=== PATIENT | male | born 1955 ===

== ENCOUNTER 2022-08-24 09:57 | Observation (INO) ==
--- NOTE | 2022-07-29 09:11 | PAT Medication Instructions ---
Medication Instructions Date of Service July 29, 2022 Home Medications cyanocobalamin (vitamin B-12) 1,000 mcg tablet 1,000 mcg PO QAM lisinopril 20 mg-hydrochlorothiazide 12.5 mg tablet 1 tab PO HS rabeprazole 20 mg tablet,delayed release (AcipHex) 20 mg PO QAM DO NOT take the morning of surgery cyanocobalamin (vitamin B-12) 1,000 mcg tablet 1,000 mcg PO QAM Take morning of surgery With a small sip of water, OTHERWISE NOTHING TO EAT OR DRINK AFTER MIDNIGHT: rabeprazole 20 mg tablet,delayed release (AcipHex) 20 mg PO QAM Take evening before surgery lisinopril 20 mg-hydrochlorothiazide 12.5 mg tablet 1 tab PO HS Other Notes If you have any questions please call us at [phone] or [phone] or [phone] or [phone]
--- NOTE | 2022-08-03 11:48 | Anesthesiology Consultation ---
Date of Service August 03, 2022 Assessment & Plan (1) Encounter for pre-operative examination: Chart Review Chart Review: Acceptable Risk for Surgery and Patient seen in Pre Admission Testing Pt currently scheduled as 23 hours observation. If surgeon decides to change patient to [facility] Day [facility], patient would be acceptable risk for TKA, pending patient is motivated, has good support and surgeon's office completes [facility] preop requirements. Per PAT appt on 08/03/22, patient denies any recent travel. Pt is vaccinated for Covid. Will leave to surgeon's discretion if preop Covid testing needed. Educated on importance of using Covid precautions one week prior to surgery Teaching & Discussion Pre-Anesthesia Teaching/Discussion Notes: Instructed NPO after midnight before surgery,except medications with 15 cc of water. Medication instructions provided according to the PAT guidelines. History Surgery Operation Date: 08/24/22 08:50 Proposed Procedures p Right Total Knee Arthroplasty - Sam Theodore MD Height/Weight Height: 6 ft Weight: 92.1 kg Allergies Allergy/AdvReac Type Severity Reaction Status Date / Time metoclopramide [From Reglan] AdvReac Intermediate hives or Verified 07/28/22 15:04 rash-"can't remember" Medications Home Medications Medication Instructions Recorded Confirmed Last Taken cyanocobalamin (vitamin B-12) 1,000 mcg PO QAM 03/30/22 07/28/22 Unknown 1,000 mcg tablet rabeprazole 20 mg tablet,delayed 20 mg PO QAM 03/30/22 07/28/22 Unknown release (AcipHex) lisinopril 20 1 tab QPM 08/03/22 08/03/22 Unknown mg-hydrochlorothiazide 25 mg tablet Past Medical History Medical History Arthritis GERD (gastroesophageal reflux disease) Well controlled and stable with med History of Ribeiro's esophagus Follows routinely with EGDs History of COVID-19 03/2019, no testing, saw PCP for "being sick", loss of taste and smell for 16 months>resolved. Hypertension Exercise / Class Metabolic Activity II 4-5 Yardwork/Stairs/Walk up hill (one flight of stairs - no chest pain or SOB) Past Surgical History Surgical History History of esophagogastroduodenoscopy (EGD) Hx of appendectomy Hx of colonoscopy w/polypectomy Hx of tonsillectomy Hx of vasectomy Past Anesthesia History No Hx of Anesthesia Complications and No Family Hx of Anesthesia Complications History of PONV No Hx of PONV and No Hx of Motion Sickness Social History Smoking Status: Never smoker Do You Dip or Chew Tobacco: Yes (hx-quit 2014) Hx Alcohol Use: Yes Alcohol type: beer and wine alcohol intake frequency: holidays/special occasions only Hx Substance Use: No substance use type: does not use Review of Systems Patient denies chest pain, shortness of breath, dyspnea on exertion, cough, wheezing, palpitations. No hx of seizures, stroke, [place], apnea/snoring. No hx of blood clots or blood transfusions Physical Exam Vital Signs VITALS BP 125/82 P 62 TEMP 98.1 SP02 100% RESP 16 Constitutional no acute distress ENMT Mouth: no TMJ clicking Thyromental Distance: > or= 3.5 Finger Breadths (3.5) Mallampati Class: I Neck neck extension not limited Respiratory normal respiratory effort; no respiratory distress Auscultation: lungs clear to auscultation bilaterally; no wheezes Cardiovascular Rate/Rhythm: regular rate and regular rhythm Heart Sounds: no murmur Vessels: no carotid bruit Musculoskeletal Spine: no pain with cervical ROM Extremities: extremities normal to inspection Psychiatric Orientation: alert Lab Results Anesthesia Preop Results Results Anesthesia Widget: WBC 8.63 K/ul (4.8-10.8) 08/03/22 Hgb 15.1 g/dl (14.0-18.0) 08/03/22 Hct 42.7 % (42.0-52.0) 08/03/22 Plt 245 K/uL (130-400) 08/03/22 Na 139 mmol/L (136-145) 08/03/22 K 3.8 mmol/L (3.5-5.1) 08/03/22 Cl 103 mmol/L (98-107) 08/03/22 CO2 32 mmol/L (21-32) 08/03/22 BUN 21 mg/dl (6-23) 08/03/22 Creat 0.93 mg/dl (0.6-1.4) 08/03/22 Glucose Level 87 mg/dl (70-99(Fasting)) 08/03/22 PT 11.4 Seconds (9.0-12.0) 08/03/22 PTT 27.3 Seconds (21.0-31.0) 08/03/22 INR 1.1 (0.9-1.1) 08/03/22 Blood Type A Negative 08/03/22 Antibody Screen NEGATIVE 08/03/22 Testing Electrocardiogram Date: 08/03/22 Sinus bradycardia with first-degree AV block at 57 bpm Left axis deviation Right bundle branch block Chest X-Ray Date: 08/03/22 Findings: + NAD Stress Test Date: 04/20/18 Type: DSE Resting EF: 55 to 59% Resting LV Function: normal Resting RWMA: + none Dobutamine stress echocardiographic examination was normal without resting LV wall motion abnormalities or inducible ischemia MPHR 94% Resting EKG shows NSR with right bundle branch block. Bigeminy and occasional PVCs were noted at rest, low-dose and in recovery. No significant ST changes Normal HR and BP response to dobutamine Mild concentric LVH. Nondilated cardiac chambers. Mild TR. Estimated PASP 27 mmHg. COVID-19 Risk Screen Screening Information COVID-19 Screen Date: 08/03/22 Exposure 21 Days Family/Household +COVID Last 21 Days: No Exposure 10 Days Any COVID Exposure Last 10 Days: No Symptoms Last 10 Days Experienced COVID Sx Last 10 Days: No + COVID 0-90 Days COVID + in Last 0-90 Days: No Risk Plan COVID Risk Plan: No Risk Identified Patient Education COVID Preop Screening Education Complete: Yes
--- NOTE | 2022-08-21 15:06 | History and Physical Report ---
CHIEF COMPLAINT: Persistent and progressive right knee pain and discomfort. HISTORY OF PRESENT ILLNESS: The patient is a 67-year-old gentleman, who presents for surgical treatm ent of his right knee. He has a long history of knee problems dating back to an open meniscectomy th at he had done by in 1971 when he was in high school. Over the years, he has developed inc reased pain, discomfort, and stiffness in his right knee. He has been through extensive conservative treatment, which has become less successful overtime. If he walks more than 10 minutes, he has sign ificant pain, which limits him. Pain is mostly medial, but some global. The more he is up and on th e knee, the more it hurts and the more it swells. He would like to have his right knee fixed. PAST MEDICAL HISTORY: 1. Hypertension. 2. Gastroesophageal reflux disease. PAST SURGICAL HISTORY: Includes right open meniscectomy in 1971. ALLERGIES: REGLAN. CURRENT MEDICATIONS: Include: 1. Aciphex. 2. Lisinopril. 3. Multivitamin. 4. Vitamin B12. SOCIAL HISTORY: A 67-year-old male. Drinks 4 to 6 drinks per week. Does not smoke. FAMILY HISTORY: Noncontributory. REVIEW OF SYSTEMS: Negative for diabetes. Denies any chest pain or shortness of breath. No history of DVT or PE. No known bleeding problems. PHYSICAL EXAMINATION: GENERAL: Physical exam shows a pleasant middle-aged male. He looks to be in pretty good health. HEENT: Benign. NECK: Supple. No lymphadenopathy. LUNGS: Clear to auscultation. HEART: Regular rate and rhythm. ABDOMEN: Soft, nontender, and nondistended. EXTREMITIES: Grossly neurovascularly intact except as follows. Examination of the right knee reveals the patient walks with a slight bit of a limp. He has got varu s alignment to his knee with a varus thrust with weightbearing. He has got well-healed oblique incis ion over the medial side of his knee. Small knee effusion. He has got bony hypertrophy medially. R corona of motion 5 to 125. He has got a soft endpoint to his Ngozi. No pivot. No varus or valgus i nstability. X-RAYS: Four views of the right knee were reviewed. It shows advanced right knee DJD. She has got complete loss of his medial joint space. He has got osteophytes in all 3 compartments. He has got t ibial femoral subluxation. X-rays of the right hip show mild hip arthritis with some Cam impingement. ASSESSMENT: A 67-year-old male with advanced right knee degenerative joint disease with a history of open meniscectomy in the past. 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 Medardo reis has failed conservative measures and would like to have his right knee replaced. He does have some underlying hip arthritis, but not near as bad as his knee arthritis. PLAN: We are going to proceed with right knee replacement. The risks and benefits of this procedure were explained to the patient and include, but not limited to DVT, PE, , infection, neurologica l injury, vascular injury, bleeding problems, limited range of motion, stiffness, incomplete relief o f symptoms, and need for revision surgery in the future. The patient understands and desires to proc eed. Informed consent was obtained. We will likely use some vancomycin in the cement due to his open surgery in the past. He is planning to be discharged to home using the [facility]. We will plan on DVT prophylaxis i ncluding thigh-high TEDs, SCDs, and baby aspirin twice a day. Job ID: [id number]
[~2022-08-24 09:57] MED LIST: ACETAMINOPHEN 500 MG TAB PO SCH; BUPIVACAINE 0.5 % 5 MG/1 ML PF 10ML VIAL ONE; BUPIVACAINE LIPOSOME/PF 266 MG, BUPIVACAINE/EPINEPHRINE 50 ML, SODIUM CHLORIDE 0.9% PF ... INFIL SCH; CeleBREX 200 MG CAP PO SCH; EPINEPHrine INJ 1 MG/ML AMP ONE; FAMOTIDINE 20 MG TAB PO SCH; General Order Problem(s) SCH; LR 500ML BOLUS, THEN 15ML/HR IV SCH; MIDAZOLAM HCL 1 MG/ML 2ML VIAL ONE; ROPIVACAINE 0.5% 5 MG/ML 30 ML VIAL ONE; Scopolamine 1 MG TDSY TD SCH; TRANEXAMIC ACID 1,000 MG **IV Intra-op IV SCH; ceFAZolin 2000MG 2,000 MG/15 ML SYR IV SCH; fentaNYL citrate PF 100 MCG/2 ML VIAL ONE
[2022-08-24] MEDS: LR 60ML/HR IV SCH ×2 (10:25→10:32)
[2022-08-24] MEDS: ALLERGY Noted to ORDERED Medication SCH ×7 (10:34→23:15)
--- NOTE | 2022-08-24 11:15 | History & Physical Bridge Note ---
Date of Service August 24, 2022 History & Physical Bridge Note I have examined the patient, reviewed the History & Physical and in the interval since the performance of the History & Physical I have noted the following changes of clinical significance: no changes noted
[2022-08-24] MEDS ORDERED: dexAMETHasone 4 MG TAB PO ONE (11:37)
[2022-08-24] MEDS ORDERED: VANCOMYCIN HCL 1000MG/20ML VIAL ONE (13:33)
[2022-08-24] MEDS ORDERED: BUPIVACAINE/EPINEPHRINE 0.25% 1:200,000 30 ML VIAL ONE (13:33)
[2022-08-24] MEDS ORDERED: SODIUM CHLORIDE 0.9% PF 50 ML VIAL ONE (13:33)
[2022-08-24] MEDS ORDERED: BUPIVACAINE LIPOSOME 1.3% 266 MG/20 ML VIAL ONE (13:34)
[2022-08-24] MEDS ORDERED: PROPOFOL IV EMULSION 10 MG/ML 20 ML VIAL IV ONE (14:04)
[2022-08-24] MEDS ORDERED: DEXAMETHASONE SOD INJ 4 MG/ML VIAL ONE (14:06)
[2022-08-24] MEDS ORDERED: KETOROLAC 30 MG/ML VIAL ONE (14:06)
[2022-08-24] MEDS ORDERED: PHENYLEPHRINE 100MCG/ML 5ML SYR ONE (14:16)
[2022-08-24] MEDS ORDERED: ePHEDrine sulfate 50 MG/ML SYR ONE (14:16)
[2022-08-24] MEDS ORDERED: MIDAZOLAM HCL 1 MG/ML 2ML VIAL ONE (14:23)
--- NOTE | 2022-08-24 15:45 | Operative Report ---
PG Post Operative Report Pre & Post Diagnosis Operation Date: 08/24/22 12:30 Pre-Op Diagnosis: Right Knee Degenerative joint disease Post-Op Diagnosis: Right Knee Degenerative joint disease I identified the patient and participated in the time-out.: Yes Procedure Operation Date: 08/24/22 12:30 Actual Procedures p Right Total Knee Arthroplasty(Right) - Sam Theodore MD Surgeon Sam Theodore MD Maintenance Construction Helper Gino Hurst PA-C Estimated Blood Loss 50 Findings Consistent with Post-Op Diagnosis Operative findings were advanced right knee medial compartment DJD. HPI extensive grade 4 [id number] disease and eburnation of the medial compartment. He had a varus deformity to his knee. Moderate knee joint effusion. Osteophytes primarily medially. Specimens Right knee sent for pathology Anesthesia Type Spinal MAC Complications none Disposition Accompanied Patient To Recovery: No Indications Patient is a 67-year-old gentleman said a long history of knee problems that dating back to his high school years. He injured his knee had an open meniscectomy done in the 70s. Over the years he developed progressive pain discomfort and deformity to his right knee. He failed conservative measures and elected proceed with right total knee arthroplasty. Description of Procedure Operative implants consist of: 1. Biomet Vanguard size 70 right posterior stabilized femoral component. 2. Biomet size 79 tibial tray. 3. 10 mm posterior stabilized polyethylene insert. 4. 34 x 8 and half all poly patella. The patient was taken the operating, identified, placed on the operating table supine position protectors were properly padded. IV antibiotics tried by anesthesia team. A spinal anesthetic and abductor canal block had provided in the holding area. Dickinson catheter was placed in sterile fashion. Right thigh tent was then placed in the right lower extremities then prepped and draped in usual sterile fashion. The right leg was elevated exsanguinated with use of an Esmarch nd the tourniquet was set at 300 mmHg. An anterior approach to the right knee was then performed to longitudinal incision centered over the patella. Sharp dissection was carried through subcutaneous tissue down the extensor mechanism. Medial parapatellar arthrotomy incision was made. Some subperiosteal dissection was carried out medially. The fat pad was resected from Neath patella tendon. Lateral patellofemoral ligament was released. Patella subluxated laterally the knee was flexed. The osteophytes taken off distal femur. The ACL and PCL released from the distal femur and the tibia subluxated anteriorly. The external tibial alignment jig was then placed in the interface the tibia and adjusted 14 mm medially. Proximal tibial cut was made remove millimeter bone from most deficient aspect medial tibial plateau. Some osteophytes taken off medial and posterior medially. Tibia sized to a size 79. Attention drawn the femur. The distal femur examined the sharp drop with intramedullary canal was suction. A right 6 degree valgus cutting guide was placed. Distal femoral cutting block was pinned in place. Distal femoral cut was made to take an additional 3 mm of bone off distal femur. The femur was then sized to a size 70. The AP cutting block was pinned parallel to the epicondylar axis which was 3 degrees of external rotation. Anterior cut, anterior chamfer, posterior cut, posterior chamfer cuts were made. The box cutting guide was placed in just slight lateral and the box cut was made. The knee was flexed. The remnants of the medial and lateral menisci were excised. The osteophytes taken off the posterior aspect of femur. A trial femoral component was placed. Tibial tray was pinned in maximum external rotation and the drill and stem punch used to create defect in proximal tibia for the tibial tray. Knee was then trialed and the 10 mm insert fit most appropriately. Attention drawn the patella. The patella was cleaned of all soft tissues. Patella thickness measured 25 mm in thickness was cut down to 15. Was sized to a size 34 patella. The lug holes were drilled for the 34 patella. The lateral osteophyte was removed. Patella button was placed. Knee was taken through range of motion and the patella tracked nicely with no thumbs test. Attention drawn to place the permanent components. All trial components were removed. Bone plug was placed in the distal femur limit blood loss. Double batch Palacos G cement was mixed. I did add an additional gram of vancomycin to the cement due to his history of open knee surgery in the past. A Biomet Vanguard size 70 right posterior stabilized femoral component, size 79 tibial tray, 10 mm posterior stabilized polyethylene insert, and a 34 x 8 and half all Paller patella then cemented in place. New spreadout into full extension till cement hardened. Final cement check was then performed. Pericapsular tissues were injected with total 100 cc of combination of 20 cc of Exparel, 30 cc normal saline, 50 cc of quarter percent Marcaine with epinephrine. Patient did receive 1 g tranexamic acid. The tourniquet was then let down for final tourniquet time of 55 minutes. Hemostasis assured use electrocautery. Extensor mechanism then closed with combination 1 PDS suture and #1 Vicryl suture in a [id number] fashion to the extensor mechanism checked found to be intact. The subcutaneous tissues then closed with 2 Dexon suture in a buried interrupted fashion skin was closed skin pavan. Leg was then cleaned and dried and sterile dressed with Xeroform, 4 fours, sterile cast padding, Elpidio bandage were applied. Patient was then transferred to the recovery in stable condition. The patient tolerated the procedure well and there were no complications. Gino Hurst, my physician trust administrative assistant, was present for the entire procedure. His assistance was essential and required for appropriate patient positioning, prepping and draping, surgical exposure, performing the technical details of the operation, placement the implants, closure of the wound, and placement of the sterile bandage. I attest to the content of the Intraoperative Record and any orders documented therein. Any exceptions are noted below.
--- NOTE | 2022-08-24 16:12 | XRay Report ---
XR knee RT 1 or 2V routine HISTORY: 67 years-old Male Surgical Post Op right knee arthroplasty COMPARISON: None TECHNIQUE: 2 views of the right knee FINDINGS: Total joint arthroplasty with patellar resurfacing. Anterior midline skin pavan are noted along wit h expected postoperative soft tissue swelling and deep tissue air. No acute fracture, dislocation or unexpected opaque foreign body. IMPRESSION: Total joint arthroplasty with expected postoperative changes. ACT 112: Negative or not required by law. The above report was generated using voice recognition software. It may contain grammatical, syntax o r spelling errors. Electronically signed by: Sukhi Clark M.D. 08/24/2022 4:11 PM
--- NOTE | 2022-08-24 16:54 | Anesthesiology Progress Note ---
Date of Service August 24, 2022 Anesthesia Post Procedure Vital Signs Vital Signs: Temp Pulse Pulse Resp BP Pulse Ox O2 Del Method 08/24/22 16:45 36.5 C 62 12 113/63 96 Room Air 08/24/22 16:35 66 14 105/58 L 96 Room Air 08/24/22 16:25 63 15 104/60 96 Room Air 08/24/22 16:15 58 L 19 117/69 96 Room Air 08/24/22 16:05 56 L 14 119/69 97 Room Air 08/24/22 15:55 54 L 12 117/68 100 Oxymask 08/24/22 15:45 36.4 C L 62 10 L 110/64 95 Oxymask 08/24/22 10:19 37 C 63 20 138/90 97 Room Air O2 Flow Rate 08/24/22 16:45 08/24/22 16:35 08/24/22 16:25 08/24/22 16:15 08/24/22 16:05 08/24/22 15:55 5 08/24/22 15:45 5 08/24/22 10:19 Transfer of Care Handoff Completed per policy Notes Mental Status: alert / awake / arousable Patient Amnestic to Procedure: Yes Nausea / Vomiting: adequately controlled Pain: adequately controlled Airway Patency, RR, SpO2: stable & adequate BP & HR: stable & adequate Hydration State: stable & adequate Neuraxial Anesthesia: was administered and sensory block is resolving Anesthetic Complications: no major complications apparent
[2022-08-24] MEDS ORDERED: NALOXONE HCL 0.4 MG/1 ML VIAL/CARP IV PRN (17:18)
[2022-08-24] MEDS ORDERED: ALUMINUM/MAGNESIUM SUSP 30 ML UDC PO PRN (17:18)
[2022-08-24] MEDS ORDERED: bisacodyL 10 MG SUPP PR PRN (17:18)
[2022-08-24] MEDS ORDERED: diphenhydrAMINE Capsule 25 MG CAP PO PRN (17:18)
[2022-08-24] MEDS ORDERED: ONDANSETRON INJ 2 MG/ML 2 ML VIAL IV PRN (17:18)
[2022-08-24] MEDS ORDERED: METOCLOPRAMIDE HCL INJ 5 MG/ML 2 ML VIAL IV PRN (17:18)
[2022-08-24] MEDS ORDERED: MAGNESIUM HYDROXIDE SUSP 30 ML UDC PO PRN (17:18)
[2022-08-24] MEDS ORDERED: oxyCODONE HCL IR 5 MG TAB (IMMEDIATE RELEASE) PO PRN (17:18)
[2022-08-24] MEDS ORDERED: HYDROmorphone INJ 0.5 MG/0.5 ML SYR IV PRN (17:18)
[2022-08-24] MEDS: SODIUM CHLORIDE 0.9% 1000ML 1,000 ML IV SCH (17:30)
[2022-08-24] MEDS: ASCORBIC ACID 500 MG TAB PO SCH (18:23)
[2022-08-24] MEDS: Scopolamine CHECK PATCH PLACEMENT SCH ×2 (18:23→23:24)
[2022-08-24] MEDS: KETOROLAC TROMETHAMINE 15 MG/ML VIAL IV SCH ×2 (18:27→22:36)
[2022-08-24] MEDS: Patient's ALLERGY Info needs ENTERED SCH ×2 (19:20→23:13)
[2022-08-24] MEDS: ASPIRIN 81 MG ECTAB PO SCH (19:35)
[2022-08-24] MEDS: DOCUSATE SODIUM 100 MG CAP PO SCH (19:35)
[2022-08-24] MEDS: DOCUSATE SODIUM/SENNA 50/8.6MG TAB PO SCH (19:51)
[2022-08-24] MEDS: ceFAZolin 2000MG 2,000 MG/15 ML SYR IV SCH (20:47)
[2022-08-24] MEDS ORDERED: SENNA 8.6 MG TAB PO SCH (21:00)
[2022-08-24] MEDS ORDERED: LISINOPRIL/HCTZ 20/25MG 1 TAB PO SCH (21:00)
[2022-08-24] MEDS ORDERED: TRANEXAMIC ACID / 0.7% NACL 1,000 MG/100 ML BAG IV SCH (21:45)
[2022-08-24] MEDS: ACETAMINOPHEN 500 MG TAB PO SCH (22:04)
[2022-08-25] MEDS: SODIUM CHLORIDE 0.9% 1000ML 1,000 ML IV SCH (03:04)
[2022-08-25] MEDS: ALLERGY Noted to ORDERED Medication SCH (04:01)
[2022-08-25] MEDS: ACETAMINOPHEN 500 MG TAB PO SCH ×2 (05:08→13:55)
[2022-08-25] MEDS: ceFAZolin 2000MG 2,000 MG/15 ML SYR IV SCH (05:09)
[2022-08-25] MEDS: KETOROLAC TROMETHAMINE 15 MG/ML VIAL IV SCH ×2 (05:09→11:10)
[2022-08-25] MEDS ORDERED: dexAMETHasone 10 MG in SYRINGE 0 ML IV SCH (08:00)
[2022-08-25 08:15] LABS: Hematocrit (blood only) 36.7 % (42.0-52.0); Hemoglobin 12.9 g/dl (14.0-18.0); Mean Corpuscular Hemoglobin 31.6 pg (25.0-34.0); Mean Corpuscular Hgb Conc 35.1 g/dL (32.0-36.0); Mean Platelet Volume 9.1 fL (9.4-12.4); Platelet Count 270 K/uL (130-400); RDW Standard Deviation 42.7 fL (36.4-46.3); Red Blood Count 4.08 M/uL (4.70-6.10); White Blood Count 15.85 K/ul (4.8-10.8)
[2022-08-25] MEDS: DOCUSATE SODIUM/SENNA 50/8.6MG TAB PO SCH (08:29)
[2022-08-25] MEDS: ASCORBIC ACID 500 MG TAB PO SCH (08:29)
[2022-08-25] MEDS: DOCUSATE SODIUM 100 MG CAP PO SCH (08:29)
[2022-08-25] MEDS: ASPIRIN 81 MG ECTAB PO SCH (08:29)
[2022-08-25] MEDS: Scopolamine CHECK PATCH PLACEMENT SCH (08:30)
[2022-08-25 08:48] LABS: BUN Creatinine Ratio 21.2 (10-20); Calcium 8.7 mg/dl (8.6-10.3); Creatinine Clr Calc Pharmacy 70.6 ml/min; Est GFR (African American) 78.1 ml/min; Est GFR (Non-African American) 67.4 ml/min; Potassium 3.4 mmol/L (3.5-5.1)
[2022-08-25] MEDS ORDERED: TAMSULOSIN HCL 0.4 MG CAP PO SCH (09:00)
[2022-08-25] MEDS ORDERED: CYANOCOBALAMIN (B-12) 500 MCG TABLET PO SCH (09:00)
[2022-08-25] MEDS ORDERED: MULTIVITAMIN TAB PO SCH (09:00)
[2022-08-25] MEDS ORDERED: PANTOprazole 40 MG TAB PO SCH (09:00)
--- NOTE | 2022-08-25 14:57 | Progress Notes ---
DATE OF SERVICE: 08/25/2022. SUBJECTIVE: A 67-year-old gentleman, postoperative day 1 from right knee replacement. He is doing p retty well. Knee is a bit more sore after going through therapy. Denies any chest pain or shortness of breath. OBJECTIVE: VITAL SIGNS: Temperature 36.7. Vital signs are stable. GENERAL: Shows a pleasant middle-aged male. He is sitting up in a bedside chair, looks comfortable. LUNGS: Clear to auscultation. HEART: Regular rate and rhythm. ABDOMEN: Soft, nontender, nondistended. EXTREMITIES: Grossly neurovascularly intact except as follows. Examination of his right leg reveals the dressing to be clean, dry and intact. He can dorsiflex and plantarflex his foot appropriately. He can do a straight leg raise with a little bit of a lag. His toes are pink with brisk refill. He is neurologically intact. LABORATORY DATA: Hemoglobin 12.9. Hematocrit 36.7. Electrolytes are stable. ASSESSMENT: A 67-year-old gentleman, postoperative day 1 from a right knee replacement, doing well. His pain is controlled. He is neurologically intact. PLAN: 1. DVT prophylaxis includes thigh-high TEDs, SCDs, and aspirin twice a day. 2. PT/OT, weightbear as tolerated. Right total knee protocol. 3. Pain control, doing okay with current pain regimen. 4. Disposition: Plan to discharge to home with some home health later today. Job ID: [id number]
--- NOTE | 2022-08-28 07:48 | Discharge Summary ---
Date of Service August 28, 2022 Discharge Data Procedures Performed Operation Date: 08/24/22 12:30 Actual Procedures p Right Total Knee Arthroplasty(Right) - Sam Theodore MD Hospital Course (1) Status post total right knee replacement: This is a 67 year old patient admitted on 08/24/22 and underwent total knee arthroplasty. He tolerated the procedure well and there were no complications. Transferred to the PACU post op and later to the orthopedic floor for further care. He was given ancef for antibiotic prophylaxis. He was also given SAMM stockings, SCDs, and aspirin for DVT prophylaxis. Hemoglobin, hematocrit, and vital signs were monitored during his hospital stay and remained stable. Did not require any blood transfusions. There were no complications during his hospital stay. By post op day #1 the patient was tolerating a regular diet, pain was reasonably controlled with oral pain medicine, and he was participating in physical therapy. On post op day #1 the patient was discharged home and set up with home health care. He was given printed discharge instructions including prescriptions for extra strength tylenol, aspirin, cefadroxil, ketorolac, zofran, senokot, flomax,and oxycodone. Continue physical therapy, weight bearing as tolerated. Continue SAMM stockings. Follow up approximately 2 weeks post op or sooner if there are problems or concerns. Coding Level of Care Code None Diagnoses Status post total right knee replacement Z96.651
== END 2022-08-25 15:34 | disposition home health service (06) ==
LOC: 3W 09:57 → ASU 09:57